=== PATIENT | male | born 1975 | race Caucasian/White ===

== ENCOUNTER 2025-04-12 07:12 | Outpatient (CLI) | payer BC, SELFPAY ==
--- OUTSIDE RECORDS SUMMARY | 2025-04-12 07:42 | XMS_ITS | Clinical Summary ---
Author Organization [facility] Address [address] [place] [address] Care Team Providers Care Engineering Lab Technician Name Role Phone Marques Kilpatrick MD Primary Care Provider [phone] Allergies Active Allergy Reactions Criticality Noted Date Comments Dust Mites Edema 02/27/2015 Ragweed Pollen Runny Nose 11/02/2016 Medications fexofenadine (Angeles Allergy) 180 mg tabletIndication s:Allergic rhinitis, unspecified seasonality, unspecified trigger Take 180 mg by mouth once daily with a meal. Do not crush or chew. 180 Tablet 3 5 Active azelastine 137 mcg/actuation nasal sprayIndications :Allergic rhinitis, unspecified seasonality, unspecified trigger Inhale 1 Walton into affected nostril(s) two times daily. 90 mL 3 5 Active lisinopriL 10 mg tabletIndication s:Hypertension, unspecified type Take 1 Tablet (10 mg) by mouth once daily. 90 Tablet 3 5 Active pseudoephedrine (12 Hour Decongestant) 120 mg TbERIndications: Chronic sinusitis, unspecified location Take 1 Tablet (120 mg) by mouth 2 times daily if needed for Nasal Congestion. 60 Tablet 1 5 Active naproxen 500 mg tabletIndication s:Back pain without radiation Take 1 Tablet (500 mg) by mouth every 12 hours if needed for Pain. 180 Tablet 5 Active cyclobenzaprine 10 mg tabletIndication s:Back pain without radiation Take 1 Tablet (10 mg) by mouth 3 times daily if needed for Muscle Spasm. 30 Tablet 2 Active polyethylene glycol-electroly te 236-22.74-6.74 -5.86 gram suspensionIndica tions:Encounter for screening colonoscopy Drink 2 liters (half the bottle) the day before colonoscopy and 2 liters (remaining prep) 6 hours prior to colonoscopy appointment. 4000 mL Active Active Problems Problem Noted Date Diagnosed Date HTN (hypertension) 02/22/2025 Encounters Date Type Department Care Team Description 04/12/2025 Travel 04/05/2025 1:35 PM CDT Office Visit [facility] [address] [place] [address] Marques Kilpatrick MD Preoperative Exam (Colonoscopy 04/12/2025 at [facility]) 04/05/2025 Travel 04/02/2025 Travel 03/22/2025 Telephone [facility] [address] [place] [address] Miki Michael MD Pre Procedure 02/27/2025 Telephone [facility] [address] [place] [address] Marques Kilpatrick MD Appointment Request (Colonoscopy) 02/22/2025 7:30 AM CDT Office Visit [facility] [address] [place] [address] Marques Kilpatrick MD Physical (49 yr old male) 02/22/2025 Travel 02/18/2025 10:40 AM CDT Office Visit [facility] [address] [place] [address] Jacky Cisse MD Allergies (FOLLOW UP - ANNUAL MED CHECK) 02/18/2025 Travel 02/13/2025 Travel from Last 3 Months Immunizations Immunization Administration Dates Next Due AMB Influenza, IIV4 PF (=>6 mos Flulaval,Fluzone Fluarix)(Flu Clinic Only) 08/03/2016 COVID-19 VACCINE SPIKEVAX (M ODERNA 50MCG/0.5ML) 12YO+ PFS 07/10/2024,2023 COVID-19 vaccine (YeHive NTCliq 30mcg/0.3mL) 12YO+ BIVALENT PF, MDV 07/28/2022 COVID-19 vaccine (YeHive NTech 30mcg/0.3mL) PF, MDV 10/14/2021,02/26/2021,02/05/2021 DT (Age < 7 years) 02/12/1997,10/08/1975 DTP 05/01/1974,03/16/1974,1973 Hepatitis B (Adult) 04/05/2025 INFLUENZA, IIV3 PF (AGE >= 6 MO) 07/10/2024 Influenza A (H1N1), Inactivated 10/13/2009 Influenza A (H1N1), Inactiva janett (Age >=3 Years) 10/13/2009 Influenza Virus, Unspecified 07/27/2010,08/13/20 09 Influenza, IIV3 (Age 6-35 mos) 07/27/2010 Influenza, IIV3 (Age >=3 years) 07/18/2012,08/13,08/23/2008 Influenza, IIV4 2023, 3,07/28/2022,2020,07/03/2020,07/26/2019,08/03/2016,1 ,08/15/2014,07/17/2013 Influenza, IIV4 (=>6mos) MDV 07/26/2019 MMR 09/20/1989,11/29/1974 Oral Polio Vaccine 07/12/1998, 2,05/01/1974,1973 Pneumococcal Conj 20-valent (Prevnar 20) 02/22/2025 Pneumococcal Poly,23-Valent (Pneumovax) 12/16/2009 Pneumococcal, Unspecified 12/16/2009 Td (Age >=7 Years) 02/12/1997 Tdap 11/13/2022,08/23/2014,08/23/2008 Zoster (Shingrix-RZV, recombinant) 07/10/2024, Family History Medical History Relation Name Comments Premature CHD (under age 60) Father Heavy smoker Alcoholism Maternal Grandfather Great Grandfather Cancer-colon Mother Shweta Dementia Mother Shweta Diabetes Paternal Grandfather Kain Diabetes Sister sister Multiple sclerosis Sister sister Thyroid Disease Sister sister Relation Name Status Comments Father Maternal Grandfather Great Grandfather Mother Shweta Alive Paternal Grandfather Kain Sister sister Social History Tobacco Use Types Packs/Day Years Used Date Smoking Tobacco: Never Passive Smoke Exposure: Past Smokeless Tobacco: Never Tobacco Cessation:Counseling Given: Yes Alcohol Use Standard Drinks/Week Comments Not Currently 0 (1 standard drink = 0.6 oz pur e alcohol) very seldom PHQ-2 Answer Date Recorded PHQ-2 TOTAL SCORE 0 02/22/2025 Social Connections Answer Date Recorded Do you often feel lonely or isolated from those around you? 0 02/22/2025 Alcohol Use Answer Date Recorded How often do you have a drink containing alcohol ? 1 03/22/2023 How many drinks containing a lcohol do you have on a typical day when you are drinking? 0 03/22/2023 How often do you have five or more drinks on one occasion? 0 03/22/2023 Financial Resource Strain Answer Date R ecorded Difficulty of Paying Living Expenses 3 02/22/2025 Difficulty of Paying Living Expenses Not on file 02/22/2025 Food Insecurity Answer Date Recorded Do you worry your food will run out before you are able to buy more? 1 02/22/2025 Transportation Needs Answer Date Record ed Does lack of transportation keep you from medica l appointments? 1 02/22/2025 Does lack of transportation keep you from work, meetings or getting things that you need? 1 02/22/2025 Housing Stability Answer Date Recorded What is your housing situation today? 1 02/22/2025 Utilities Answer Date Recorded Do you have trouble paying f or utilities (for example, heat, electricity, water, phone)? 1 02/22/2025 Sex and Gender Information Value Date Recorded Sex Assigned at Male 10/14/2021 5:26 AM [employer] Legal Sex Male 7:36 AM [employer] Gender Identity Male 10/14/2021 5:26 AM [employer] Sexual Orientation Straight 10/14/2021 5: 26 AM [employer] Obstetrics History Last Filed Vital Signs Vital Sign Reading Time Taken Comments Blood Pressure 136/89 04/05/2025 1:19 PM CDT Pulse 72 04/05/2025 1:19 PM CDT Temperature 36.8 C (98.2 F) 02/18/2025 10:47 AM CDT Respiratory Rate 12 11/13/2022 8:03 PM [employer] Oxygen Saturation 98% 04/05/2025 1:19 PM CDT Inhaled Oxygen Concentration - - Weight 119.4 kg (263 lb 4.8 oz) 04/05/2025 1:19 PM CDT Height 184.5 cm (6' 0.64) 04/05/2025 1:19 PM CD T Body Mass Index 35.09 04/05/2025 1:19 PM CDT Plan of Treatment Health Maintenance Due Date Last Done Comments Hepatitis B series for 19+ ( 2 of 3 - 19+ 3-dose series) 05/03/2025 04/05/2025 Colonoscopy through age 75 05/27/202504/12, 05/27/2020, 05/27/2020, Additional history exists Depression screening for age 12+ 02/22/2026 02/23/20 25 BMI (ht and wt on same day) for age 18+ 04/05/2026 04/05/2025, 02/22/2025, 02/18/2025, Additional history exists Lipids for age 45-75 02/22/2030 02/22/2025, 02/20/2024, 03/22/2023, Additional history exists Tetanus booster 11/13/2032 11/13/2022, 07/26, 08/23/2008, Additional history exists Tdap Completed 11/13/2022, 07/26, 08/23/2008 HIV for age 15-65 Completed 03/22/2023 Hepatitis C screening for ag e 18-79 Completed 03/22/2023 COVID-19 vaccine series Completed 07/10/20 24, 2023, 07/28/2022, Additional history exists Influenza Vaccine Completed 07/10/2024, , 07/29/2023, Additional history exists Zoster (shingles) series for age 50+ Completed 07/10/2024, 02/20/2024 Pneumococcal series for age 50+ Completed 02/22/2025, 12/16/2009, 12/16/2009 Procedures Procedure Name Priority Date/Time Associated Diagnosis Comments COLONOSCOPY SCREENING Routine 04/12/2025 7:16 AM CDT Screen for colon cancer BASIC METABOLIC PANEL Routine 02/22/2025 8:07 AM CDT Hypertension, unspecified type LIPID PANEL Routine 02/22/2025 8:07 AM CDT Screening, lipid HEMOGLOBIN A1C Routine 02/22/2025 8:07 AM CDT Elevated blood sugar PSA TOTAL Routine 02/22/2025 8:07 AM CDT Screening for prostate cancer LC HIV-1/O/2, 4TH GENERATION Routine 03/22/2023 8:26 AM CDT Screening for HIV (human immunodeficiency virus) LC HCV ANTIBODY RFX TO QUANT PCR Routine 03/22/2023 8:26 AM CDT Need for hepatitis C screening test from Last 3 Months or Most Recently Relevant to Health Maintenance Results * (ABNORMAL) HEMOGLOBIN A1C (02/22/2025 8:07 AM CDT) Pathologist [facility] HEMOGLOBIN A1C 5.8(H) <5.7 % Face to Face [facility] Comment: For someone without known diabetes, a hemoglobin A1c value between 5.7% and 6.4% is consistent with prediabetes and should be confirmed with a follow-up test. For someone with known diabetes, a value <7% indicates that their diabetes is well controlled. A1c targets should be individualized based on duration of diabetes, age, comorbid conditions, and other considerations. This assay result is consistent with an increased risk of diabetes. Currently, no consensus exists regarding use of hemoglobin A1c for diagnosis of diabetes for children. Blood BLOOD SPECIMEN / Unknown 02/22/2025 8:07 AM CDT 02/22/2025 8:08 AM CDT us Marques Kilpatrick MD CHEMISTRY Final Resu lt [facility] [address] [place] [address], [facility] [address] [place] [address] * PSA TOTAL (DIAG OR SCREEN) (02/22/2025 8:07 AM CDT) PSA, TOTAL 0.75 < OR = 4.00 ng/mL [facility] Comment: The total PSA value from this assay system is standardized against the WHO standard. The test result will be approximately 20% lower when compared to the equimolar-standardized total PSA (Mary Salome). Comparison of serial PSA results should be interpreted with this fact in mind. This test was performed using the Siemens chemiluminescent method. Values obtained from different assay methods cannot be used interchangeably. PSA levels, regardless of value, should not be interpreted as absolute evidence of the presence or absence of disease. Blood BLOOD SPECIMEN / Unknown 02/22/2025 8:07 AM CDT 02/22/2025 8:08 AM CDT Marques Kilpatrick MD CHEMISTRY Final Resu lt [facility] [address] [place] [address], [facility] [address] [place] [phone] * (ABNORMAL) LIPID PANEL (02/22/2025 8:07 AM CDT) Pathologist [facility] CHOLESTEROL, TOTAL 157 <200 mg/dL Face to [facility] HDL CHOLESTEROL 37(L) > OR = 40 mg/dL [facility] TRIGLYCERIDES 243(H) <150 mg/dL [facility] Comment: If a non-fasting specimen was collected, consider repeat triglyceride testing on a fasting specimen if clinically indicated. Rosaline et al. J. of Clin. Lipidol. 2015;9:129-169. LDL-CHOLESTEROL 86 mg/dL (calc) [facility] Comment: Reference range: <100 Desirable range <100 mg/dL for primary prevention; <70 mg/dL for patients with CHD or diabetic patients with > or = 2 CHD risk factors. LDL-C is now calculated using the Sara calculation, which is a validated novel method providing better accuracy than the Friedewald equation in the estimation of LDL-C. Miki SS et al. ORLIN. 2013;310(88): 6905-4756 (http://education.Syndiant/faq/PHA561) CHOL/HDLC RATIO 4.2 <5.0 (calc) [employer] [facility] NON HDL CHOLESTEROL 120 <130 mg/dL (calc) [employer] [facility] Comment: For patients with diabetes plus 1 major ASCVD risk factor, treating to a non-HDL-C goal of <100 mg/dL (LDL-C of <70 mg/dL) is considered a therapeutic option. Blood BLOOD SPECIMEN / Unknown 02/22/2025 8:07 AM CDT 02/22/2025 8:08 AM CDT us Marques Kilpatrick MD CHEMISTRY Final Resu lt [facility] [address] [place] [address], [facility] [address] [place] [phone] * (ABNORMAL) BASIC METABOLIC PANEL (02/22/2025 8:07 AM CDT) GLUCOSE 109(H) 65 - 99 mg/dL [facility] Comment: Fasting reference interval For someone without known diabetes, a glucose value between 100 and 125 mg/dL is consistent with prediabetes and should be confirmed with a follow-up test. UREA NITROGEN (BUN) 22 7 - 25 mg/dL [facility] CREATININE 1.20 0.70 - 1.30 mg/dL [facility] EGFR 73 > OR = 60 mL/min/1. 73m2 [employer] [facility] BUN/CREATININE RATIO SEE NOTE: 6 - 22 (calc) [employer] [facility] Comment: Not Reported: BUN and Creatinine are within reference range. SODIUM 140 135 - 146 mmol/L [facility] POTASSIUM 4.4 3.5 - 5.3 mmol/L [facility] CHLORIDE 104 98 - 110 mmol/L [facility] CARBON DIOXIDE 27 20 - 32 mmol/L [facility] ELECTROLYTE BALANCE 9 7 - 17 mmol/L (calc) [facility] CALCIUM 9.2 8.6 - 10.3 mg/dL [facility] Blood BLOOD SPECIMEN / Unknown 02/22/2025 8:07 AM CDT 02/22/2025 8:08 AM CDT Marques Kilpatrick MD CHEMISTRY Final Resu lt Performing Organization Address City/[facility]/ZIP Co de Phone Number [facility] [employer] [facility] [address] [place] [address], [facility] [address] [place] [address] * LC HCV ANTIBODY RFX TO QUANT PCR (03/22/2023 8:26 AM CDT) [facility] HCV Ab Non Reactive Non Reactive 03/24/2023 10:06 PM CDT [facility] Blood BLOOD SPECIMEN / Unknown Venipuncture / Unknown 03/22/2023 8:26 AM CDT 03/22/2023 8:28 AM CDT Narrative [facility] - 03/24/2023 10:06 PM CDT Performed at: [address] [place] [id number] Market Research Manager: Miguel Denny MD, Phone: [phone] Miroslava Motta DO LABORATORY Final Resu lt [facility] ([facility]) [address] [place] [id number], * LC HIV-1/O/2, 4TH GENERATION (03/22/2023 8:26 AM CDT) HIV Scr 4th Gen Non Reactive Non Reactive 03/24/2023 12:08 PM CDT [facility] Comment: HIV Negative HIV-1/HIV-2 antibodies and HIV-1 p24 antigen were NOT detected. There is no laboratory evidence of HIV infection. Blood BLOOD SPECIMEN / Unknown Venipuncture / Unknown 03/22/2023 8:26 AM CDT 03/22/2023 8:28 AM CDT Narrative [facility] - 03/24/2023 12:08 PM CDT Performed at: [address] [place] [id number] Market Research Manager: Miguel Denny MD, Phone: [phone] Miroslava Motta DO LABORATORY Final Resu lt [facility] ([facility] [address] [place] [address] * COLONOSCOPY SCREENING (05/27/2020 10:09 AM CDT) Marques Kilpatrick MD GI PROCEDURE ORD Final Res ult from Last 3 Months or Most Recently Relevant to Health Maintenance Insurance [employer] [place] [employer] OF [place] [facility] Care Teams Engineering Lab Technician Relationship Specialty Start Date End Date Marques Kilpatrick MD [address] [place] [address] PCP - General Family Practice 11/02/16
--- NOTE | 2025-04-12 08:27 | P.ANES_ITS ---
Anesthesia Charges Start Date/Time Anesthesia Start Date: 04/12/25 Anesthesia Start Time: 07:59 Stop Date/Time Anesthesia Stop Date: 04/12/25 Anesthesia Stop Time: 08:25 Coding CPT Codes CPT Codes: ANTONI LWDavid INTST NDSC NOS - [id number] ([id number]) P2 - PATIENT W/MILD SYST DISEASE, QX - JOCKEY VALET SVC W/ MD MED DIRECTION, QK - OBSERVATION NURSE 2-4 CNCRNT ANES PROC
--- NOTE | 2025-04-12 08:27 | W.ANESCHARGE ---
Anesthesia Charges Start Date/Time Anesthesia Start Date: 04/12/25 Anesthesia Start Time: 07:59 Stop Date/Time Anesthesia Stop Date: 04/12/25 Anesthesia Stop Time: 08:25 Coding CPT Codes CPT Codes: ANTONI LWDavid INTST NDSC NOS - [id number] ([id number]) P2 - PATIENT W/MILD SYST DISEASE, QX - GOLF PROFESSIONAL SVC W/ MD MED DIRECTION, QK - FINANCE LECTURER 2-4 CNCRNT ANES PROC
--- NOTE | 2025-04-12 08:46 | P.ANES_ITS ---
Anesthesia Charges Start Date/Time Anesthesia Start Date: 04/12/25 Anesthesia Start Time: 07:59 Stop Date/Time Anesthesia Stop Date: 04/12/25 Anesthesia Stop Time: 08:25 Coding CPT Codes CPT Codes: ANTONI LWR INTST NDSC NOS - [id number] ([id number]) P2 - PATIENT W/MILD SYST DISEASE, QK - BOX TOE FLANGER STITCHDOWNS 2-4 CNCRNT ANES PROC, QX - REGISTERED PRIVATE DUTY NURSE SVC W/ MD MED DIRECTION
--- NOTE | 2025-04-12 08:46 | W.ANESCHARGE ---
Anesthesia Charges Start Date/Time Anesthesia Start Date: 04/12/25 Anesthesia Start Time: 07:59 Stop Date/Time Anesthesia Stop Date: 04/12/25 Anesthesia Stop Time: 08:25 Coding CPT Codes CPT Codes: ANTONI LWR INTST NDSC NOS - [id number] ([id number]) P2 - PATIENT W/MILD SYST DISEASE, QK - SLAB LIFTING ENGINEER 2-4 CNCRNT ANES PROC, QX - INVASIVE PHYSICIAN SVC W/ MD MED DIRECTION
--- OUTSIDE RECORDS SUMMARY | 2025-04-13 00:47 | XMS_ITS | Clinical Summary ---
Author Organization [facility] Address [address] [place] [address] Care Team Providers Care Revenue Officer Name Role Phone Marques Kilpatrick MD Primary Care Provider [phone] Allergies Active Allergy Reactions Criticality Noted Date Comments Dust Mites Edema 02/27/2015 Ragweed Pollen Runny Nose 11/02/2016 Medications fexofenadine ([facility] All[facility]) 180 mg tabletIndication s:Allergic rhinitis, unspecified seasonality, unspecified trigger Take 180 mg by mouth once daily with a meal. Do not crush or chew. 180 Tablet 3 5 Active azelastine 137 mcg/actuation nasal sprayIndications :Allergic rhinitis, unspecified seasonality, unspecified trigger Inhale 1 [place] into affected nostril(s) two times daily. 90 [...] Date Type Department Care Team Description 04/12/2025 7:15 AM CDT Office Visit [facility] [address] [place] [address] Miki Michael MD Arrived 04/12/2025 Travel 04/05/2025 1:35 PM CDT Office Visit [facility] [address] [place] [address] Marques Kilpatrick MD Preoperative Exam (Colonoscopy 04/12/2025 at [facility]) 04/05/2025 Travel 04/02/2025 Travel 03/22/2025 Telephone [facility] [address] [place] [address] Miki Michael MD Pre Procedure 02/27/2025 Telephone [facility] [address] [place] [address] Marques Kilpatrick MD Appointment Request (Colonoscopy) 02/22/2025 7:30 AM CDT Office Visit [address] [address] Marques Kilpatrick MD Physical (49 yr old male) 02/22/2025 Travel 02/18/2025 10:40 AM CDT Office Visit [facility] [address] [place] [address] Jacky Cisse MD Allergies (FOLLOW UP - ANNUAL MED CHECK) 02/18/2025 Travel 02/13/2025 Travel from Last 3 Months Immunizations Immunization Administration Dates Next Due AMB Influenza, IIV4 PF (=>6 mos Flulaval,Fluzone Fluarix)(Flu Clinic Only) 08/03/2016 COVID-19 VACCINE SPIKEVAX (M ODERNA 50MCG/0.5ML) 12YO+ PFS 07/10/2024,2023 COVID-19 vaccine ([employer] NTech 30mcg/0.3mL) 12YO+ BIVALENT PF, MDV 07/28/2022 COVID-19 vaccine ([employer]Bio NTech 30mcg/0.3mL) PF, MDV 10/14/2021,02/26/2021,02/05/2021 DT (Age [...] Shweta Dementia Mother Shweta Diabetes Paternal Grandfather Ona Diabetes Sister sister Multiple sclerosis Sister sister Thyroid Disease Sister sister Relation Name Status Comments Father Maternal Grandfather Great Grandfather Mother Shweta Alive Paternal Grandfather Ona Sister sister Social History Tobacco Use Types [...] Sex Assigned at Male 10/14/2021 5:26 AM CREDIT COLLECTIONS SPECIALIST Legal Sex Male 7:36 AM CREDIT COLLECTIONS SPECIALIST Gender Identity Male 10/14/2021 5:26 AM CREDIT COLLECTIONS SPECIALIST Sexual Orientation Straight 10/14/2021 5: 26 AM CREDIT COLLECTIONS SPECIALIST Obstetrics History Last Filed Vital Signs Vital Sign Reading Time Taken Comments Blood Pressure 136/89 04/05/2025 1:19 PM CDT Pulse 72 04/05/2025 1:19 PM CDT Temperature 36.8 C (98.2 F) 02/18/2025 10:47 AM CDT Respiratory Rate 12 11/13/2022 8:03 PM CREDIT COLLECTIONS SPECIALIST Oxygen Saturation 98% 04/05/2025 1:19 PM CDT [...] 3 - 19+ 3-dose series) 05/03/2025 04/05/2025 Depression screening for age 12+ 02/22/2026 02/23/20 25 BMI (ht and wt on same day) for age 18+ 04/05/2026 04/05/2025, 02/22/2025, 02/18/2025, Additional history exists Lipids for age 45-75 02/22/2030 02/22/2025, 02/20/2024, 03/22/2023, Additional history exists Colonoscopy through age 75 04/12/203004/12, 04/12/2025, 05/27/2020, Additional history exists Tetanus booster 11/13/2032 11/13/2022, [...] (ABNORMAL) HEMOGLOBIN A1C (02/22/2025 8:07 AM CDT) HEMOGLOBIN A1C 5.8(H) <5.7 % [facility] Comment: For someone without known diabetes, [...] Marques Kilpatrick MD CHEMISTRY Final Resu lt [employer] [facility] [address] [place] [address], [facility] [address] [place] [address] * PSA TOTAL (DIAG OR SCREEN) (02/22/2025 8:07 AM CDT) PSA, TOTAL 0.75 < OR = 4.00 ng/mL [facility] Comment: The total PSA value from this assay system is standardized against the WHO standard. The test result will be approximately 20% lower when compared to the equimolar-standardized total PSA (Mary [place]). Comparison of serial PSA results should be [...] CHEMISTRY Final Resu lt Performing Organization Address [facility] Co de Phone Number [employer] [facility] [address] [place] [address], [facility] [address] [place] [address] * (ABNORMAL) LIPID PANEL (02/22/2025 8:07 AM CDT) CHOLESTEROL, TOTAL 157 <200 mg/dL [facility] HDL CHOLESTEROL 37(L) > OR = 40 mg/dL [facility] TRIGLYCERIDES 243(H) <150 mg/dL [facility] Comment: If a non-fasting specimen was collected, consider repeat triglyceride testing on a fasting specimen if clinically indicated. Rosaline et al. J. of Clin. Lipidol. 2015;9:129-169. LDL-CHOLESTEROL 86 mg/dL (calc) [facility] Comment: Reference range: <100 Desirable range <100 mg/dL for primary prevention; <70 mg/dL for patients with CHD or diabetic patients with > or = 2 CHD risk factors. LDL-C is now calculated using the Sara calculation, which is a validated novel method providing better accuracy than the Friedewald equation in the estimation of LDL-C. Miki SS et al. ORLIN. 2013;310(19): 1363-9119 (http://education.Allani/faq/QQH893) CHOL/HDLC RATIO 4.2 <5.0 (calc) [facility] NON HDL CHOLESTEROL 120 <130 mg/dL (calc) [facility] Comment: For patients with diabetes plus 1 major ASCVD risk factor, treating to a non-HDL-C goal of <100 mg/dL (LDL-C of <70 mg/dL) is considered a therapeutic option. Blood BLOOD SPECIMEN / Unknown 02/22/2025 8:07 AM CDT 02/22/2025 8:08 AM CDT us Marques Kilpatrick MD CHEMISTRY Final Resu lt [employer] [facility] [address] [place] [address], [facility] [address] [place] [phone] * (ABNORMAL) BASIC METABOLIC PANEL (02/22/2025 8:07 AM CDT) [facility] GLUCOSE 109(H) 65 - 99 mg/dL [facility] Comment: Fasting reference interval For someone without known diabetes, a glucose value between 100 and 125 mg/dL is consistent with prediabetes and should be confirmed with a follow-up test. UREA NITROGEN (BUN) 22 7 - 25 mg/dL [facility] CREATININE 1.20 0.70 - 1.30 mg/dL [facility] EGFR 73 > OR = 60 mL/min/1. 73m2 [facility] BUN/CREATININE RATIO SEE NOTE: 6 - 22 (calc) [facility] Comment: Not Reported: BUN and Creatinine are within reference range. SODIUM 140 135 - 146 mmol/L [facility] POTASSIUM 4.4 3.5 - 5.3 mmol/L [...] CHEMISTRY Final Resu lt Performing Organization Address City/[facility]/ZIP Co de Phone Number [facility] [address] [place] [address], [facility] [address] [place] [address] * LC HCV ANTIBODY RFX TO QUANT PCR (03/22/2023 8:26 AM CDT) [facility] HCV Ab Non Reactive Non Reactive 03/24/2023 10:[address] [facility] Blood BLOOD SPECIMEN / Unknown Venipuncture / Unknown 03/22/2023 8:26 AM CDT 03/22/2023 8:28 AM CDT Narrative [facility] - 03/24/2023 10:06 PM CDT Performed at: [address] [place] [id number] Sugar Mixer: Miguel Denny MD, Phone: [phone] Miroslava Motta DO LABORATORY Final Resu lt [facility] ([facility]) [address] [place] [address], * LC HIV-1/O/2, 4TH GENERATION (03/22/2023 8:26 AM CDT) HIV Scr 4th Gen Non Reactive Non Reactive 03/24/2023 12:[address] [facility] Comment: HIV Negative HIV-1/HIV-2 antibodies and HIV-1 p24 antigen were NOT detected. There is no laboratory evidence of HIV infection. Blood BLOOD SPECIMEN / Unknown Venipuncture / Unknown 03/22/2023 8:26 AM CDT 03/22/2023 8:[address] [facility] - 03/24/2023 12:08 PM CDT Performed at: [address] [place] [id number] Sugar Mixer: Miguel Denny MD, Phone: [phone] us Miroslava Motta DO LABORATORY Final Resu lt [facility] ([facility]) [address] [place] [address], * COLONOSCOPY SCREENING (05/27/2020 10:09 AM CDT) Marques Kilpatrick MD GI PROCEDURE ORD Final Res ult from Last 3 Months or Most Recently Relevant to Health Maintenance Insurance [facility] ADV[facility] Care Teams Revenue Officer Relationship Specialty Start Date End [place] [address] PCP - General Family Practice 11/02/16
== END 2025-04-12 07:13 | disposition home or self-care (01) ==
LOC: OP CLINIC 07:18
PROVIDERS: PCP Surgery; Visit Provider Internal Medicine Gastroenterology
DX: Z12.11 Encounter for screening for malignant neoplasm of colon (principal); Z80.0 Family history of malignant neoplasm of digestive organs; D12.8 Benign neoplasm of rectum
CPT/HCPCS: 00811; 00812; 45380; 88305; J2704